=== PATIENT | male | born 2000 | race Caucasian/White ===

== ENCOUNTER 2019-06-30 20:08 | Emergency (ER) | payer OTHER ==
[~2019-06-30] VITALS: Ht 180.3 cm; Wt 127.0 kg
[2019-06-30] MEDS ORDERED: CARVEDILOL3.125 MG PO (20:32)
[2019-06-30] MEDS ORDERED: COLCHICINE0.6 MG PO (20:33)
[2019-06-30 20:47] LABS: ABSOLUTE NEUTROPHILS 7.2 thou/uL (1.4-8.2); BASOPHILS 0.5 % (0.0-2.0); EOSINOPHILS 1.8 % (0.0-3.0); HEMATOCRIT 46.4 % (42.0-52.0); HEMOGLOBIN 15.7 gm/dL (14.0-18.0); LYMPHOCYTES 27.4 % (24.0-44.0); MCHC 33.8 g/dL (28.0-37.0); MCV 85.9 fL (80.0-100.0); MONOCYTES 6.4 % (1.0-8.0); PLATELET COUNT 379 thou/uL (150-400); POLYS 63.9 % (36.0-66.0); RDW 13.3 % (10.5-14.5); WBC 11.3 thou/uL (4.0-11.0)
[2019-06-30 20:54] LABS: ANION GAP 6 mmol/L (7-16); BUN 18 mg/dL (7-18); CALCIUM 9.4 mg/dL (8.5-10.1); CHLORIDE 104 mmol/L (98-107); CO2 29 mmol/L (21-32); CREATININE 0.9 mg/dL (0.7-1.3); GLUCOSE 94 mg/dL (74-106); POTASSIUM 4.4 mmol/L (3.5-5.1); SODIUM 139 mmol/L (136-145)
[2019-06-30 21:08] LABS: ALBUMIN 3.9 g/dL (3.4-5.0); LIPASE 92 U/L (73-393); SGOT 24 U/L (15-37); SGPT 55 U/L (30-65); TOTAL BILIRUBIN 0.2 mg/dL (<0.1-1.0); TOTAL PROTEIN 7.8 g/dL (6.4-8.2); TROPONIN-I <0.06 ng/mL (<0.06)
[2019-06-30 21:12] LABS: AMP/METHAMP Negative (Negative); BARBITURATES Negative (Negative); BENZODIAZEPINES Negative (Negative); COCAINE Negative (Negative); METHADONE Negative (Negative); OPIATES Negative (Negative); PCP Negative (Negative)
[2019-06-30] MEDS ORDERED: MOBIC7.5 MG PO (21:33)
[2019-06-30 21:46] VITALS: BP 142/78
--- NOTE | 2019-07-02 15:06 | EKG ---
[address] [address] ELECTROCARDIOGRAM REPORT Name: ALICJA BURROSW Room #: [id number] Admission: 06/30/19 Attend Phys: Discharge: 06/30/19 Date of : 89 Report #: [id number] THIS REPORT FOR: //name// [facility] ED Test Date: 2019-06-30 Test Time: 20:13:52 Pat Name: ALICJA BURROWS Department: Room: Gender: M [employer] Commissioner: JOSE : 2000 Requested By: Renuka Khanna Order Number: [id number] MD: Wiley Oconnor Measurements Intervals [place] Rate: 73 P: 54 ME: 147 QRS: 70 QRSD: 89 T: 31 QT: 346 QTc: 382 Interpretive Statements Sinus rhythm Baseline wander in lead(s) II,aVF No previous ECG available for comparison Electronically Signed On 07-02-2019 15:06:31 CDT by Wiley Oconnor [email or web address] <ELECTRONICALLY SIGNED> By: Wiley Oconnor MD 07/02/19 1506 12 12 Wiley Oconnor MD /SONJA
== END 2019-06-30 21:47 | disposition home or self-care (01) ==
LOC: ER 20:08
PROVIDERS: Nurse Practitioner Family
DX: R07.9 Chest pain, unspecified (principal); E66.9 Obesity, unspecified; Z68.39 Body mass index [BMI] 39.0-39.9, adult